=== PATIENT | female | born 1980 | race Caucasian/White ===

== ENCOUNTER 2024-02-15 09:12 | Emergency (ER) | payer OTHER ==
[~2024-02-15] VITALS: Ht 170.2 cm; Wt 61.2 kg
[2024-02-15 09:33] VITALS: BP 123/87; PULSE 104; RESP 18; TEMP 98; O2SAT 97
[2024-02-15 09:50] VITALS: BP 123/87; PULSE 104; RESP 18; TEMP 98; O2SAT 97
== END 2024-02-15 09:49 ==
LOC: MED 09:12
DX: S09.90XA Unspecified injury of head, initial encounter (principal); W50.0XXA Accidental hit or strike by another person, initial encounter; Y93.89 Activity, other specified; Y92.89 Other specified places as the place of occurrence of the external cause; Y99.8 Other external cause status
CPT/HCPCS: 99283